=== PATIENT | female | born 1995 | race Caucasian/White ===

== ENCOUNTER 2020-11-22 13:45 | Emergency (ER) | payer SELFPAY ==
[~2020-11-22] VITALS: Ht 160 cm; Wt 49.0 kg
[2020-11-22 14:16] LABS: BASOPHILS % (AUTO) 1 % (0-1); EOSINOPHILS % (AUTO) 3 % (1-7); LYMPHOCYTES % (AUTO) 38 % (22-44); MEAN CORPUSCULAR HEMOGLOBIN 30.8 pg (27.0-34.8); MEAN CORPUSCULAR HGB CONC 34.3 g/dL (32.4-35.8); MEAN PLATELET VOLUME 8.3 fL (7.4-10.4); MONOCYTES % (AUTO) 7 % (2-9); NEUTROPHILS % (AUTO) 51 % (42-75); PLATELET COUNT 254 x10^3/uL (130-400); RED BLOOD COUNT 4.81 x10^6/uL (3.82-5.3); RED CELL DISTRIBUTION WIDTH 12.2 % (9.6-15.2)
[2020-11-22 14:21] LABS: MD NO
[2020-11-22 14:29] LABS: ALBUMIN 4.3 g/dL (3.4-5.0); ANION GAP 6 mmol/L (5-15); CALCIUM 8.9 mg/dL (8.5-10.1); CHLORIDE 109 mmol/L (98-107)
[2020-11-22 14:34] LABS: CREATININE 0.76 mg/dL (0.55-1.02)
[2020-11-22 16:51] LABS: MICROSCOPIC AUTO
--- NOTE | 2020-11-22 17:01 | NUR ---
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
[2020-11-22] MEDS ORDERED: KETOROLAC 30 MG/1 ML ONE (19:12)
[2020-11-22] MEDS ORDERED: KETOROLAC 30 MG/1 ML IM ONE (19:30)
[2020-11-22 19:33] VITALS: BP 101/73
== END 2020-11-22 19:30 | disposition home or self-care (01) ==
LOC: ED 18:25
DX: O26.891 Other specified pregnancy related conditions, first trimester (principal); R10.2 Pelvic and perineal pain; Z3A.01 Less than 8 weeks gestation of pregnancy
CPT/HCPCS: 36415; 76830; 80048; 81001; 82040; 84702; 85025; 87086; 96372; 99284; J1885